=== PATIENT | male | born 1960 | race Caucasian/White ===

== ENCOUNTER 2020-11-27 12:06 | Outpatient (REF) | payer OTHER, SELFPAY | END 2020-11-27 12:07 | disposition home or self-care (01) | LOC: HO.BBR 12:06 | PROVIDERS: PCP Internal Medicine; Visit Provider Internal Medicine Hematology & Oncology | DX: D75.1 Secondary polycythemia (principal) | CPT/HCPCS: 85014; 85018; 99195 ==

== ENCOUNTER 2021-01-08 10:59 | Outpatient (REF) | payer OTHER, SELFPAY | END 2021-01-08 11:00 | disposition home or self-care (01) | LOC: HO.BBR 10:59 | PROVIDERS: Visit Provider Internal Medicine Hematology & Oncology | DX: D45 Polycythemia vera (principal) | CPT/HCPCS: 85014; 85018; 99195 ==

== ENCOUNTER 2021-01-22 10:43 | Outpatient (REF) | payer OTHER, SELFPAY | END 2021-01-22 10:44 | disposition home or self-care (01) | LOC: HO.BBR 10:43 | PROVIDERS: Visit Provider Internal Medicine Hematology & Oncology | DX: D45 Polycythemia vera (principal) | CPT/HCPCS: 85018; 99195 ==

== ENCOUNTER 2021-02-05 10:10 | Outpatient (REF) | payer OTHER, SELFPAY | END 2021-02-05 10:11 | disposition home or self-care (01) | LOC: HO.BBR 10:10 | PROVIDERS: Visit Provider Internal Medicine Hematology & Oncology | DX: D45 Polycythemia vera (principal) | CPT/HCPCS: 85018; 99195 ==

== ENCOUNTER 2021-02-20 13:11 | Outpatient (REF) | payer OTHER, SELFPAY | END 2021-02-20 13:12 | disposition home or self-care (01) | LOC: HO.BBR 13:11 | PROVIDERS: PCP Internal Medicine; Visit Provider Internal Medicine Hematology & Oncology | DX: D45 Polycythemia vera (principal) | CPT/HCPCS: 85018; 99195 ==

== ENCOUNTER 2021-03-06 13:02 | Outpatient (REF) | payer OTHER, SELFPAY | END 2021-03-06 13:03 | disposition home or self-care (01) | LOC: HO.BBR 13:02 | PROVIDERS: Visit Provider Internal Medicine Hematology & Oncology | DX: D45 Polycythemia vera (principal) | CPT/HCPCS: 85018; 99195 ==

== ENCOUNTER 2021-07-08 12:36 | Outpatient (REF) | payer OTHER, SELFPAY | END 2021-07-08 12:37 | disposition home or self-care (01) | LOC: HO.BBR 12:36 | PROVIDERS: Visit Provider Internal Medicine Hematology & Oncology | DX: D75.1 Secondary polycythemia (principal) | CPT/HCPCS: 85018; 99195 ==

== ENCOUNTER 2022-02-18 08:02 | Outpatient (REF) | payer OTHER, SELFPAY | END 2022-02-18 08:03 | disposition home or self-care (01) | LOC: HO.BBR 08:02 | PROVIDERS: Visit Provider Internal Medicine Hematology & Oncology | DX: D45 Polycythemia vera (principal) | CPT/HCPCS: 85018; 99195 ==

== ENCOUNTER 2022-03-28 10:07 | Outpatient (REF) | payer OTHER, SELFPAY | END 2022-03-28 10:08 | disposition home or self-care (01) | LOC: HO.BBR 10:07 | PROVIDERS: Visit Provider Internal Medicine Hematology & Oncology | DX: D45 Polycythemia vera (principal) | CPT/HCPCS: 85018; 99195 ==

== ENCOUNTER 2022-04-25 11:51 | Outpatient (REF) | payer OTHER, SELFPAY | END 2022-04-25 11:52 | disposition home or self-care (01) | LOC: HO.BBR 11:51 | PROVIDERS: Visit Provider Internal Medicine Hematology & Oncology | DX: D45 Polycythemia vera (principal) | CPT/HCPCS: 85018; 99195 ==

== ENCOUNTER 2022-05-23 10:59 | Outpatient (REF) | payer OTHER, SELFPAY | END 2022-05-23 11:00 | disposition home or self-care (01) | LOC: HO.BBR 10:59 | PROVIDERS: Visit Provider Internal Medicine Hematology & Oncology | DX: D45 Polycythemia vera (principal) | CPT/HCPCS: 85018 ==

== ENCOUNTER 2022-06-20 14:07 | Outpatient (REF) | payer OTHER, SELFPAY | END 2022-06-20 14:08 | disposition home or self-care (01) | LOC: HO.BBR 14:07 | PROVIDERS: PCP Internal Medicine; Visit Provider Internal Medicine Hematology & Oncology | DX: D45 Polycythemia vera (principal) | CPT/HCPCS: 85014; 85018; 99195 ==

== ENCOUNTER 2022-07-21 14:01 | Outpatient (REF) | payer OTHER, SELFPAY | END 2022-07-21 14:02 | disposition home or self-care (01) | LOC: HO.BBR 14:01 | PROVIDERS: Visit Provider Internal Medicine Hematology & Oncology | DX: D45 Polycythemia vera (principal) | CPT/HCPCS: 85014; 85018; 99195 ==

== ENCOUNTER 2022-08-22 13:48 | Outpatient (REF) | payer OTHER, SELFPAY | END 2022-08-22 13:49 | disposition home or self-care (01) | LOC: HO.BBR 13:48 | PROVIDERS: Visit Provider Internal Medicine Hematology & Oncology | DX: D45 Polycythemia vera (principal) | CPT/HCPCS: 85018; 99195 ==

== ENCOUNTER 2022-09-24 13:38 | Outpatient (REF) | payer OTHER, SELFPAY | END 2022-09-24 13:39 | disposition home or self-care (01) | LOC: HO.BBR 13:38 | PROVIDERS: Visit Provider Internal Medicine Hematology & Oncology | DX: D45 Polycythemia vera (principal) | CPT/HCPCS: 85018 ==

== ENCOUNTER 2022-10-22 12:49 | Outpatient (REF) | payer OTHER, SELFPAY | END 2022-10-22 12:50 | disposition home or self-care (01) | LOC: HO.BBR 12:49 | PROVIDERS: Visit Provider Internal Medicine Hematology & Oncology | DX: D45 Polycythemia vera (principal) | CPT/HCPCS: 85018 ==

== ENCOUNTER 2022-11-20 12:59 | Outpatient (REF) | payer OTHER, SELFPAY | END 2022-11-20 13:00 | disposition home or self-care (01) | LOC: HO.BBR 12:59 | PROVIDERS: Visit Provider Internal Medicine Hematology & Oncology | DX: Z13.89 Encounter for screening for other disorder (principal) ==

== ENCOUNTER 2023-01-01 12:44 | Outpatient (REF) | payer OTHER, SELFPAY | END 2023-01-01 12:45 | disposition home or self-care (01) | LOC: HO.BBR 12:44 | PROVIDERS: Visit Provider Internal Medicine Hematology & Oncology | DX: D45 Polycythemia vera (principal) | CPT/HCPCS: 85014; 85018; 99195 ==

== ENCOUNTER 2023-02-12 13:28 | Outpatient (REF) | payer OTHER, SELFPAY | END 2023-02-12 13:29 | disposition home or self-care (01) | LOC: HO.BBR 13:28 | PROVIDERS: Visit Provider Internal Medicine Hematology & Oncology | DX: D45 Polycythemia vera (principal) | CPT/HCPCS: 85014; 85018; 99195 ==

== ENCOUNTER 2023-03-26 12:47 | Outpatient (REF) | payer OTHER, SELFPAY | END 2023-03-26 12:48 | disposition home or self-care (01) | LOC: HO.BBR 12:47 | PROVIDERS: Visit Provider Internal Medicine Hematology & Oncology | DX: D45 Polycythemia vera (principal) | CPT/HCPCS: 85018 ==

== ENCOUNTER 2023-05-07 13:05 | Outpatient (REF) | payer OTHER, SELFPAY | END 2023-05-07 13:06 | disposition home or self-care (01) | LOC: HO.BBR 13:05 | PROVIDERS: Visit Provider Internal Medicine Hematology & Oncology | DX: D45 Polycythemia vera (principal) | CPT/HCPCS: 85014; 85018; 99195 ==

== ENCOUNTER 2023-06-09 13:49 | Outpatient (REF) | payer OTHER, SELFPAY | END 2023-06-09 13:50 | disposition home or self-care (01) | LOC: HO.BBR 13:49 | PROVIDERS: Visit Provider Internal Medicine Hematology & Oncology | DX: D45 Polycythemia vera (principal) | CPT/HCPCS: 85018; 99195 ==

== ENCOUNTER 2023-07-21 13:54 | Outpatient (REF) | payer OTHER, SELFPAY | END 2023-07-21 13:55 | disposition home or self-care (01) | LOC: HO.BBR 13:54 | PROVIDERS: Visit Provider Internal Medicine Hematology & Oncology | DX: D45 Polycythemia vera (principal) | CPT/HCPCS: 85014; 85018; 99195 ==

== ENCOUNTER 2023-09-01 13:53 | Outpatient (REF) | payer OTHER, SELFPAY | END 2023-09-01 13:54 | disposition home or self-care (01) | LOC: HO.BBR 13:53 | PROVIDERS: Visit Provider Internal Medicine Hematology & Oncology | DX: D45 Polycythemia vera (principal) | CPT/HCPCS: 85018 ==

== ENCOUNTER 2023-10-13 12:58 | Outpatient (REF) | payer OTHER, SELFPAY | END 2023-10-13 12:59 | disposition home or self-care (01) | LOC: HO.BBR 12:58 | PROVIDERS: Visit Provider Internal Medicine Hematology & Oncology | DX: D45 Polycythemia vera (principal) | CPT/HCPCS: 85014; 85018; 99195 ==

== ENCOUNTER 2023-12-08 13:55 | Outpatient (REF) | payer OTHER, SELFPAY | END 2023-12-08 13:56 | disposition home or self-care (01) | LOC: HO.BBR 13:55 | PROVIDERS: Visit Provider Internal Medicine Hematology & Oncology | DX: D45 Polycythemia vera (principal) | CPT/HCPCS: 85018; 99195 ==

== ENCOUNTER 2024-02-02 13:45 | Outpatient (REF) | payer OTHER, SELFPAY | END 2024-02-02 13:46 | disposition home or self-care (01) | LOC: HO.BBR 13:45 | PROVIDERS: Visit Provider Internal Medicine Hematology & Oncology | DX: D45 Polycythemia vera (principal) | CPT/HCPCS: 85018; 99195 ==

== ENCOUNTER 2024-03-29 13:33 | Outpatient (REF) | payer OTHER, SELFPAY | END 2024-03-29 13:34 | disposition home or self-care (01) | LOC: HO.BBR 13:33 | PROVIDERS: Visit Provider Internal Medicine Hematology & Oncology | DX: D45 Polycythemia vera (principal) | CPT/HCPCS: 85018; 99195 ==

== ENCOUNTER 2024-05-24 12:59 | Outpatient (REF) | payer OTHER, SELFPAY | END 2024-05-24 13:00 | disposition home or self-care (01) | LOC: HO.BBR 12:59 | PROVIDERS: Visit Provider Internal Medicine Hematology & Oncology | DX: D45 Polycythemia vera (principal) | CPT/HCPCS: 85014; 85018; 99195 ==

== ENCOUNTER 2024-07-18 13:41 | Outpatient (REF) | payer OTHER, SELFPAY ==
--- OUTSIDE RECORDS SUMMARY | 2024-07-18 15:27 | XMS_ITS | Encounter Summary ---
Author Organization [employer] Address [address] [facility] [address] [place] [address] Care Team Providers Care Seed Yeast Operator Name Role Phone Mumtaz Charles Unassigned Primary Care Provider U navailable Encounter Details Date Type Department Care Team (Latest Contact Info) Description 10/08/2018 Abstract [facility] Dental, Provider, DDS Social History Tobacco Use Types Packs/Day Years Used Date Smoking Tobacco: Never Assessed Sex and Gender Information Value Date Recorded Sex Assigned at Male 06/13/2022 3:03 PM EST Legal Sex Male 8:39 PM EDT Gender Identity Male 06/13/2022 3:03 PM EST Sexual Orientation Choose not to disclose 2022 3:03 PM EST documented as of this encounter Plan of Treatment Not on file documented as of this encounter Visit Diagnoses Not on filedocumented in this encounter Care Teams Seed Yeast Operator Relationship Specialty Start Date End Date Mumtaz Charles Unassigned PCP - General Family Medicine 09/08/22 documented as of this encounter
--- OUTSIDE RECORDS SUMMARY | 2024-07-18 15:27 | XMS_ITS | Clinical Summary ---
Author Organization [facility] Address [address] [place] [address] Phone Care Team Providers Care Vending Machine Assembler Name Role Phone Ibrahima Martin MD Primary Care Provider [phone] Allergies No known active allergies Medications apixaban (Eliquis) 5 mg tablet Take 1 tablet (5 mg total) by mouth every 12 hours. 02/16/2023 Active atorvastatin (LIPITOR) 20 mg tablet Take 1 tablet (20 mg total) by mouth every other day. Active metoprolol succinate (TOPROL-XL) 25 mg 24 hr tablet Take 1 tablet (25 mg total) by mouth 1 (one) time each day. Active hydroxyurea (HYDREA) 500 mg capsule TAKE 1 CAPSULE (500 MG TOTAL) BY MOUTH DAILY 30 capsule 11 03/17/2024 Active Active Problems Problem Noted Date Diagnosed Date Hereditary hemochromatosis 11/29/2019 Homozygous Factor V Leiden mutation 11/29/2019 Surgical History Surgery Date Site/Laterality Comments APPENDECTOMY PROCEDURE:APPENDECTOMY OTHER SURGICAL HISTORY PROCEDURE:Heart Stent placed 02/25/2006 Medical History Medical History Date Comments Hemochromatosis DX:Hemochromatos is Gout DX:Gout Social History Tobacco Use Types Packs/Day Years Used Date Smoking Tobacco: Former Cigarettes Q uit: 10/09/2017 Tobacco Cessation:Counseling Given: Not Answered Alcohol Use Standard Drinks/Week Comments Yes 2 (1 standard drink = 0.6 oz pur e alcohol) Sex and Gender Information Value Date Recorded Sex Assigned at Not on file Legal Sex Male 7:36 PM EST Gender Identity Not on file Sexual Orientation Not on file Obstetrics History Last Filed Vital Signs Vital Sign Reading Time Taken Comments Blood Pressure 136/80 03/18/2024 2:30 PM EST Pulse 75 03/18/2024 2:30 PM EST Temperature 36.3 ??C (97.4 ??F) 03/18/2024 2:30 PM ES T Respiratory Rate - - Oxygen Saturation 100% 03/18/2024 2:30 PM EST Inhaled Oxygen Concentration - - Weight 104 kg (230 lb) 03/18/2024 2:30 PM EST Height 188 cm (6' 2 ) 03/18/2024 2:30 PM EST Body Mass Index 29.53 03/18/2024 2:30 PM EST Plan of Treatment Upcoming Encounters Date Type Department Care Team (Late st Contact Info) Description 07/19/2024 2:30 PM EDT Office Visit [facility] Hematology Oncology [address] [place] [address] Rich Caldwell MD [address] [place] [address] Health Maintenance Due Date Last Done Comments Pneumococcal Vaccine: 50+ Years (1 of 1 - PCV) 2010 Zoster Vaccines (1 of 2) 2010 Cholesterol Screening (Lipid Panel) 04/18/2022 Colorectal Cancer Screening: Colonoscopy 04/18/2022 Depression Screening 04/18/2022 HIV Screening 04/18/2022 Hepatitis C Screening 04/18/2022 Social Influencers of Health Screening 04/18/2022 COVID-19 Vaccine ( season) 2024 03/05/2022, 09/01/2021, 02/11/2021, Additional history exists Influenza Vaccine (#1) 2024 DTaP,Tdap,and Td Vaccines (2 - Td or Tdap) 02/23/2031 02/23/2021 RSV Immunization Patients 60+ Years Old (1 - 1-dose 75+ series) 10/27/2035 HIB Vaccines Aged Out No longer eligi ble based on patient's age to complete this topic HPV Vaccines Aged Out No longer eligi ble based on patient's age to complete this topic Hepatitis A Vaccines Aged Out No long er eligible based on patient's age to complete this topic Hepatitis B Vaccines Aged Out No long er eligible based on patient's age to complete this topic IPV Vaccines Aged Out No longer eligi ble based on patient's age to complete this topic MMR Vaccines Aged Out No longer eligi ble based on patient's age to complete this topic Meningococcal ACWY Vaccine Aged Out N o longer eligible based on patient's age to complete this topic Meningococcal B Vacine Aged Out No lo nger eligible based on patient's age to complete this topic Pneumococcal Vaccine: Pediatrics (0 to 5 Years) and At-Risk Patients (6 to 64 Years) Aged Out No longer eligible based on patient's age to complete this topic RSV Immunization Patients Under 20 months Aged Out No longer eligible based on patient's age to complete this topic Varicella Vaccines Aged Out No longer eligible based on patient's age to complete this topic Procedures Procedure Name Priority Date/Time Associated Diagnosis Comments CBC WITH AUTO DIFFERENTIAL Routine 05/17/2024 8:18 AM EST Hereditary hemochromatosis (CMS/HCC) COMPREHENSIVE METABOLIC PANEL Routine 05/17/2024 8:18 AM EST Hereditary hemochromatosis (CMS/HCC) IRON AND TIBC Routine 05/17/2024 8:18 AM EST Hereditary hemochromatosis (CMS/HCC) FERRITIN Routine 05/17/2024 8:18 AM EST Hereditary hemochromatosis (CMS/HCC) CBC AND DIFFERENTIAL Routine 05/17/2024 8:18 AM EST Hereditary hemochromatosis (CMS/HCC) from Last 3 Months Results * (ABNORMAL) CBC auto differential (05/17/2024 8:18 AM EST) WBC 8.0 4.8 - 10.8 K/mcL LAB HEMETOLOGY METHOD 05/17/2024 11:52 AM EST [facility] RBC 5.60(H) 4.50 - 5.50 M/mcL LAB HEMETOLOGY METHOD 05/17/2024 11:52 AM EST [facility] Hemoglobin 14.4 13.5 - 17.5 g/dL LAB HEMETOLOGY METHOD 05/17/2024 11:52 AM [facility] Hematocrit 47.3 42.0 - 54.0 % LAB HEMETOLOGY METHOD 05/17/2024 11:52 AM [facility] MCV 85.2 79.0 - 98.0 FL LAB HEMETOLOGY METHOD 05/17/2024 11:52 AM [facility] MCH 25.9(L) 27.0 - 32.0 pcg LAB HEMETOLOGY METHOD 05/17/2024 11:52 AM [facility] MCHC 30.4(L) 32.0 - 37.0 g/dL LAB HEMETOLOGY METHOD 05/17/2024 11:52 AM [facility] RDW 16.0(H) 11.0 - 15.0 % LAB HEMETOLOGY METHOD 05/17/2024 11:52 AM [facility] Platelets 271 130 - 400 K/mcL LAB HEMETOLOGY METHOD 05/17/2024 11:52 AM [facility] MPV 9.6 7.0 - 11.0 FL LAB HEMETOLOGY METHOD 05/17/2024 11:52 AM [facility] NRBC 0.0 <1.0 % LAB HEMETOLOGY METHOD 05/17/2024 11:52 AM [facility] NRBC Absolute 0.00 <0.10 K/mcL LAB HEMETOLOGY METHOD 05/17/2024 11:52 AM [facility] Neutrophils Relative 67.3 % LAB HEMETOLOGY METHOD 05/17/2024 11:52 AM [facility] Lymphocytes Relative 16.3 % LAB HEMETOLOGY METHOD 05/17/2024 11:52 AM [facility] Monocytes Relative 10.5 % LAB HEMETOLOGY METHOD 05/17/2024 11:52 AM [facility] Eosinophils Relative 3.7 % LAB HEMETOLOGY METHOD 05/17/2024 11:52 AM EST [facility] Basophils Relative 1.7 % LAB HEMETOLOGY METHOD 05/17/2024 11:52 AM [facility] Immature Granulocytes Relative 0.5 % LAB HEMETOLOGY METHOD 05/17/2024 11:52 AM [facility] Neutrophils Absolute 5.39 1.50 - 7.00 K/mcL LAB HEMETOLOGY METHOD 05/17/2024 11:52 AM [facility] Lymphocytes Absolute 1.31 1.00 - 5.00 K/mcL LAB HEMETOLOGY METHOD 05/17/2024 11:52 AM [facility] Monocytes Absolute 0.84 0.20 - 1.00 K/mcL LAB HEMETOLOGY METHOD 05/17/2024 11:52 AM [facility] Eosinophils Absolute 0.30 0.00 - 0.50 K/mcL LAB HEMETOLOGY METHOD 05/17/2024 11:52 AM [facility] Basophils Absolute 0.14 0.00 - 0.20 K/mcL LAB HEMETOLOGY METHOD 05/17/2024 11:52 AM [facility] Immature Granulocytes Absolute 0.04(H) 0.00 - 0.03 K/mcL LAB HEMETOLOGY METHOD 05/17/2024 11:52 AM [facility] Blood Venous blood specimen / Unknown Venipuncture / Unknown 05/17/2024 8:18 AM EST 05/17/2024 11:31 AM EST us Rich Caldwell MD LAB BLOOD ORDERABLES Final Result [facility] [address] [place] [address], * (ABNORMAL) Iron and TIBC (05/17/2024 8:18 AM EST) Iron 36(L) 50 - 160 mcg/dL LAB CHEMISTRY METHOD 05/17/2024 12:22 PM [facility] TIBC 296 250 - 450 mcg/dL LAB CHEMISTRY METHOD 05/17/2024 12:22 PM [facility] Iron Saturation 12(L) 20 - 50 % LAB CHEMISTRY METHOD 05/17/2024 12:22 PM [facility] Blood Venous blood specimen / Unknown Venipuncture / Unknown 05/17/2024 8:18 AM EST 05/17/2024 11:32 AM EST us Rich Caldwell MD LAB BLOOD ORDERABLES Final Result Performing Organization Address City/[facility]/ZIP Co de Phone Number [facility] [address] [place] [address], [place] [phone] * (ABNORMAL) Ferritin (05/17/2024 8:18 AM EST) Ferritin 8(L) 26 - 388 ng/mL LAB CHEMISTRY METHOD 05/17/2024 12:24 PM [facility] Blood Venous blood specimen / Unknown Venipuncture / Unknown 05/17/2024 8:18 AM EST 05/17/2024 11:32 AM EST us Rich Caldwell MD LAB BLOOD ORDERABLES Final Result Performing Organization Address City/[facility]/ZIP Co de Phone Number [facility] [address] [place] [address], [place] [phone] * (ABNORMAL) Comprehensive metabolic panel (05/17/2024 8:18 AM EST) Sodium 139 133 - 145 mmol/L LAB CHEMISTRY METHOD 05/17/2024 12:23 PM [facility] Potassium 4.1 3.5 - 5.5 mmol/L LAB CHEMISTRY METHOD 05/17/2024 12:23 PM [facility] Chloride 104 96 - 110 mmol/L LAB CHEMISTRY METHOD 05/17/2024 12:23 PM [facility] CO2 26 21 - 32 mmol/L LAB CHEMISTRY METHOD 05/17/2024 12:23 PM [facility] Anion Gap 9 3 - 11 LAB CHEMISTRY METHOD 05/17/2024 12:23 PM [facility] Glucose 103(H) 70 - 100 mg/dL LAB CHEMISTRY METHOD 05/17/2024 12:23 PM [facility] BUN 12 5 - 25 mg/dL LAB CHEMISTRY METHOD 05/17/2024 12:23 PM [facility] Creatinine 1.05 0.70 - 1.30 mg/dL LAB CHEMISTRY METHOD 05/17/2024 12:23 PM [facility] eGFR 80 >=60 mL/min/1. 73m2 LAB CHEMISTRY METHOD 05/17/2024 12:23 PM [facility] Comment:Calculation based on the??Chronic Kidney Disease Epidemiology Collaboration (CKD-EPI) equation refit??without adjustment for race. BUN/Creatinine Ratio 11.4 LAB CHEMISTRY METHOD 05/17/2024 12:23 PM [facility] Calcium 9.3 8.5 - 10.5 mg/dL LAB CHEMISTRY METHOD 05/17/2024 12:23 PM [facility] AST (SGOT) 19 10 - 42 unit/L LAB CHEMISTRY METHOD 05/17/2024 12:23 PM [facility] ALT (SGPT) 38 10 - 60 unit/L LAB CHEMISTRY METHOD 05/17/2024 12:23 PM [facility] Alkaline Phosphatase 78 42 - 121 unit/L LAB CHEMISTRY METHOD 05/17/2024 12:23 PM [facility] Total Protein 7.1 6.0 - 8.0 g/dL LAB CHEMISTRY METHOD 05/17/2024 12:23 PM [facility] Albumin 3.9 3.2 - 5.0 g/dL LAB CHEMISTRY METHOD 05/17/2024 12:23 PM EST [facility] Total Bilirubin 0.7 0.0 - 1.4 mg/dL LAB CHEMISTRY METHOD 05/17/2024 12:23 PM EST [facility] Blood Venous blood specimen / Unknown Venipuncture / Unknown 05/17/2024 8:18 AM EST 05/17/2024 11:32 AM EST us Rich Caldwell MD LAB BLOOD ORDERABLES Final Result [facility] [address] [place] [address], from Last 3 Months Insurance [facility] [employer] Care Teams Vending Machine Assembler Relationship Specialty Start Date End Date Ibrahima Martin MD [address] [place] [address] [address] [place], [place] PCP - General Geriatric Medicine 01/02/21
--- OUTSIDE RECORDS SUMMARY | 2024-07-18 15:27 | XMS_ITS | Clinical Summary ---
Author Organization [facility] Address [address] [place] [address] Care Team Providers Care Hash Slinger Name Role Phone Ibrahima Martin MD Primary Care Provider [phone] Allergies No known active allergies Medications Medication Sig Dispensed Refills Start Date End Date Status atorvastatin (LIPITOR) tablet 20 mg Take 1 tablet (20 mg total) by mouth every other day. 0 Active metoprolol succinate (TOPROL-XL) 24 hr tablet 25 mg Take 1 tablet (25 mg total) by mouth daily. 0 Active aspirin EC 81 MG tablet Take 1 tablet (81 mg total) by mouth daily. 0 Active hydroxyurea (HYDREA) 500 MG capsule TAKE 1 CAPSULE (500 MG TOTAL) BY MOUTH DAILY 30 capsule 11 03/30/2023 Active apixaban (Eliquis) 5 MG TABS tablet Take 1 tablet (5 mg total) by mouth every 12 (twelve) hours. 60 tablet 11 02/16/2024 Active Active Problems Problem Noted Date Diagnosed Date Hereditary hemochromatosis 11/29/2019 Homozygous Factor V Leiden mutation 11/29/2019 Immunizations Name Administration Dates Next Due Covid-19 (Pfizer) Dilution Required 02/11/2021,0 08/13/2020,07/23/2020 Social History Tobacco Use Types Packs/Day Years Used Date Smoking Tobacco: Former Cigarettes Q uit: 10/2017 Alcohol Use Standard Drinks/Week Comments Yes 2 (1 standard drink = 0.6 oz pur e alcohol) Sex and Gender Information Value Date Recorded Sex Assigned at Not on file Gender Identity Not on file Sexual Orientation Not on file Job Start Date Occupation Industry Not on file Not on file Not on file Last Filed Vital Signs Vital Sign Reading Time Taken Comments Blood Pressure 129/75 12/11/2023 2:32 PM EDT Pulse 77 12/11/2023 2:32 PM EDT Temperature 36.4 ??C (97.6 ??F) 12/11/2023 2:32 PM ED T Respiratory Rate - - Oxygen Saturation 99% 12/11/2023 2:32 PM EDT Inhaled Oxygen Concentration - - Weight 103.4 kg (228 lb) 12/11/2023 2:32 PM EDT Height 188 cm (6' 2 ) 12/11/2023 2:32 PM EDT Body Mass Index 29.27 12/11/2023 2:32 PM EDT Plan of Treatment Health Maintenance Due Date Last Done Comments Hepatitis C Screening 1960 Depression Screening 1972 BMI Counseling 1978 Preventative Health Evaluation 1978 Colon Cancer Screening (Colonoscopy) 2005 Shingrix-Zoster Vaccine (1 o f 2) 2010 COVID-19 Vaccine (2023-2 5 season) 2024 02/11/2021, 08/13/2020, 07/23/2020 Influenza Vaccine (#1) 2024 DTap / Tdap / Td (2 - Td or Tdap) 02/23/2031 02/23/2021 RSV Adult > 60+ Yrs or (1 - 1-dose 75+ series) 10/27/2035 Hepatitis B Vaccines Aged Out No long er eligible based on patient's age to complete this topic Pneumococcal Vaccine Aged Out No long er eligible based on patient's age to complete this topic RSV Ped < 20 months Aged Out No longe r eligible based on patient's age to complete this topic Care Teams Hash Slinger Relationship Specialty Start Date End Date Ibrahima Martin MD [address] [place] [address] [address] [place] [address] PCP - General Geriatric Medicine 01/02/21
--- OUTSIDE RECORDS SUMMARY | 2024-07-18 15:28 | XMS_ITS | Clinical Summary ---
Author Organization [employer] Address [address] [facility] [address] [place] [address] Care Team Providers Care Reproductive Surgeon Name Role Phone PcpMumtaz Unassigned Primary Care Provider U navailable Allergies No known active allergies Medications aspirin 81 MG EC tablet 1 tablet in the morning. Active metoprolol-hydro CHLOROthiazide ER (Dutoprol) 25-12.5 MG tablet 1 tablet in the morning. Active Eliquis 5 MG tablet Take 5 mg by mouth every 12 (twelve) hours. 07/18/2022 Active atorvastatin (Lipitor) 20 MG tablet TAKE 1 TABLET BY MOUTH EVERY DAY FOR 90 DAYS 06/04/2022 Active hydroxyurea (Hydrea) 500 MG capsule 08/09/2022 Active metoprolol succinate XL (Toprol-XL) 25 MG 24 hr tablet Take 25 mg by mouth in the morning. Active atorvastatin (Lipitor) 20 MG tablet Take 20 mg by mouth every other day. Active aspirin 81 MG EC tablet Take 81 mg by mouth in the morning. Active Immunizations Name Administration Dates Next Due Tdap 02/23/2021 Social History Tobacco Use Types Packs/Day Years Used Date Smoking Tobacco: Never Smokeless Tobacco: Never Tobacco Cessation:Counseling Given: Not Answered Alcohol Use Standard Drinks/Week Comments Never 0 (1 standard drink = 0.6 oz pur e alcohol) Sex and Gender Information Value Date Recorded Sex Assigned at Male 06/13/2022 3:03 PM EST Legal Sex Male 8:39 PM EDT Gender Identity Male 06/13/2022 3:03 PM EST Sexual Orientation Choose not to disclose 2022 3:03 PM EST Last Filed Vital Signs Vital Sign Reading Time Taken Comments Blood Pressure 139/80 11/08/2020 9:00 AM EDT Pulse - - Temperature - - Respiratory Rate - - Oxygen Saturation - - Inhaled Oxygen Concentration - - Weight - - Height - - Body Mass Index - - Plan of Treatment Health Maintenance Due Date Last Done Comments CT Colonography 1960 Colonoscopy 1960 Colorectal Cancer Screening 1960 Depression Screening 1960 FIT DNA/Cologuard 1960 FIT 1960 FOBT 1960 HIV Screening 1960 Lipid Panel 1960 SDOH Screening 1960 Sigmoidoscopy 1960 Alcohol/Substance Use Screening 1972 Hepatitis C Screening 1978 Pneumococcal Vaccine: 50+ Years (1 of 1 - PCV) 2010 Zoster Vaccines (1 of 2) 2010 Dental X-Ray: Full Mouth 08/10/2018 08/10/2015, 02/08 Dental Oral Exam 12/22/2022 06/23/2022, , 03/05/2018, Additional history exists Dental Prophylaxis 12/22/2022 06/23/2022, 0 10/08/2018, 03/05/2018, Additional history exists Tobacco Screening 06/23/2023 06/23/2022 Dental X-Ray: Bitewings 06/24/2023 06/23/19 23, 08/10/2015, 05/23/2010, Additional history exists COVID-19 Vaccine ( season) 2024 03/05/2022, 09/01/2021, 02/11/2021, Additional history exists Influenza Vaccine (#1) 2024 DTaP/Tdap/Td Vaccines (2 - Td or Tdap) 02/23/2031 02/23/2021 RSV Patients and Patients Aged 60 years or older (1 - 1-dose 75+ series) 10/27/2035 HIB [...] patient's age to complete this topic Meningococcal Vaccine Aged Out No luis manuel olga lidia eligible based on patient's age to complete this topic RSV under 20 months Aged Out No longe r eligible based on patient's age to complete this topic Rotavirus Vaccines Aged Out No longer eligible based on patient's age to complete this topic Procedures Procedure Name Priority Date/Time Associated Diagnosis Comments Full PROPHYLAXIS - ADULT Routine 023 2:00 PM EST BITEWINGS - 2 RADIOGRAPHIC IMAGES Routine 06/23/2022 2:00 PM EST PERIODIC ORAL EVALUATION - ESTABLISHED PATIENT Routine 06/23/2022 2:00 PM EST INTRAORAL - COMPLETE SERIES OF RADIOGRAPHIC IMAGES Routine 08/10/2015 12:00 AM EDT from Last 3 Months or Most Recently Relevant to Health Maintenance Insurance DENTAL - HSN FULL (MEDICAID) Care Teams Reproductive Surgeon Relationship Specialty Start Date End Date Mumtaz Charles Unassigned PCP - General Family Medicine 09/08/22
== END 2024-07-18 13:42 | disposition home or self-care (01) ==
LOC: HO.BBR 13:41
PROVIDERS: Visit Provider Internal Medicine Hematology & Oncology
DX: D45 Polycythemia vera (principal)
CPT/HCPCS: 85018; 99195

== ENCOUNTER 2024-09-12 12:32 | Outpatient (REF) | payer OTHER, SELFPAY ==
--- OUTSIDE RECORDS SUMMARY | 2024-09-12 14:04 | XMS_ITS | Clinical Summary ---
Author Organization [employer] Address [address] [facility] 7[address] [place] [address] Care Team Providers Care Prep Person Name Role Phone PcpMumtaz Unassigned Primary Care [...] DENTAL - HSN FULL (MEDICAID) Care Teams Prep Person Relationship Specialty Start Date End Date Mumtaz Charles Unassigned PCP - General Family Medicine 09/08/22
--- OUTSIDE RECORDS SUMMARY | 2024-09-12 14:04 | XMS_ITS | Clinical Summary ---
Author Organization [facility] Address [address] [place] [address] Phone Care Team Providers Care Developing Machine Tender Name Role Phone Ibrahima Martin MD Primary Care Provider [phone] Allergies No known active allergies Medications apixaban [...] Problem Noted Date Diagnosed Date Hereditary hemochromatosis (CMS/HCC V24) 020 Homozygous Factor V Leiden mutation (CMS/HCC V24 ) 11/29/2019 Encounters Date Type Department Care Team Description 09/05/2024 Telephone [facility] Hematology Oncology [address] [place] [phone] Rich Caldwell MD 07/19/2024 2:30 PM EDT Office Visit [facility] Hematology Oncology [address] [place] [phone] Rich Caldwell MD Homozygous Factor V Leiden mutation (CMS/HCC V24) (Primary Dx); Hereditary hemochromatosis (CMS/HCC V24) from Last 3 Months Surgical History Surgery Date Site/Laterality Comments APPENDECTOMY [...] Sign Reading Time Taken Comments Blood Pressure 135/71 07/19/2024 2:29 PM EDT Pulse 88 07/19/2024 2:29 PM EDT Temperature 36.5 ??C (97.7 ??F) 07/19/2024 2:29 PM ED T Respiratory Rate - - Oxygen Saturation 100% 07/19/2024 2:29 PM EDT Inhaled Oxygen Concentration - - Weight 106 kg (234 lb) 07/19/2024 2:29 PM EDT Height 188 cm (6' 2 ) 03/18/2024 2:30 PM EST Body Mass Index 30.04 03/18/2024 2:30 PM EST Plan of Treatment Upcoming Encounters Date Type Department Care Team (Late st Contact Info) Description 10/18/2024 1:30 PM EDT Office Visit [facility] Hematology Oncology [address] [place] [address] Rich Caldwell MD [address] [place] [address] Health Maintenance Due Date Last [...] 09/01/2021, 02/11/2021, Additional history exists Influenza Vaccine (Season Ended) 2025 DTaP,Tdap,and Td Vaccines (2 - Td or Tdap) 02/23/2031 02/23/2021 RSV Immunization Adult Patients (1 - 1-dose 75+ series) 10/27/2035 HIB [...] age to complete this topic Meningococcal B Vaccine Aged Out No l onger eligible based on patient's age to complete [...] Diagnosis Comments CBC WITH AUTO DIFFERENTIAL Routine 08/16/2024 12:16 PM EDT Hemochromatosis CBC AND DIFFERENTIAL Routine 08/16/2024 12:16 PM EDT Hemochromatosis FERRITIN Routine 08/16/2024 12:16 PM EDT Hemochromatosis IRON AND TIBC Routine 08/16/2024 12:16 PM EDT Hemochromatosis COMPREHENSIVE METABOLIC PANEL Routine 08/16/2024 12:16 PM EDT Hemochromatosis from Last 3 Months Results * (ABNORMAL) CBC auto differential (08/16/2024 12:16 PM EDT) [facility] Signature WBC 7.6 4.8 - 10.8 K/mcL LAB HEMETOLOGY METHOD 08/16/2024 1:53 PM [facility] RBC 5.30 4.50 - 5.50 M/mcL LAB HEMETOLOGY METHOD 08/16/2024 1:53 PM [facility] Hemoglobin 13.2(L) 13.5 - 17.5 g/dL LAB HEMETOLOGY METHOD 08/16/2024 1:53 PM [facility] Hematocrit 44.3 42.0 - 54.0 % LAB HEMETOLOGY METHOD 08/16/2024 1:53 PM [facility] MCV 83.0 79.0 - 98.0 FL LAB HEMETOLOGY METHOD 08/16/2024 1:53 PM [facility] MCH 24.7(L) 27.0 - 32.0 pcg LAB HEMETOLOGY METHOD 08/16/2024 1:53 PM [facility] MCHC 29.8(L) 32.0 - 37.0 g/dL LAB HEMETOLOGY METHOD 08/16/2024 1:53 PM [facility] RDW 17.0(H) 11.0 - 15.0 % LAB HEMETOLOGY METHOD 08/16/2024 1:53 PM [facility] Platelets 292 130 - 400 K/mcL LAB HEMETOLOGY METHOD 08/16/2024 1:53 PM [facility] MPV 9.2 7.0 - 11.0 FL LAB HEMETOLOGY METHOD 08/16/2024 1:53 PM [facility] NRBC 0.0 <1.0 % LAB HEMETOLOGY METHOD 08/16/2024 1:53 PM [facility] NRBC Absolute 0.00 <0.10 K/mcL LAB HEMETOLOGY METHOD 08/16/2024 1:53 PM [facility] Neutrophils Relative 65.6 % LAB HEMETOLOGY METHOD 08/16/2024 1:53 PM EDT [facility] Lymphocytes Relative 18.0 % LAB HEMETOLOGY METHOD 08/16/2024 1:53 PM [facility] Monocytes Relative 11.0 % LAB HEMETOLOGY METHOD 08/16/2024 1:53 PM EDT [facility] Eosinophils Relative 3.6 % LAB HEMETOLOGY METHOD 08/16/2024 1:53 PM [facility] Basophils Relative 1.5 % LAB HEMETOLOGY METHOD 08/16/2024 1:53 PM [facility] Immature Granulocytes Relative 0.3 % LAB HEMETOLOGY METHOD 08/16/2024 1:53 PM [facility] Neutrophils Absolute 4.98 1.50 - 7.00 K/mcL LAB HEMETOLOGY METHOD 08/16/2024 1:53 PM [facility] Lymphocytes Absolute 1.36 1.00 - 5.00 K/mcL LAB HEMETOLOGY METHOD 08/16/2024 1:53 PM [facility] Monocytes Absolute 0.83 0.20 - 1.00 K/mcL LAB HEMETOLOGY METHOD 08/16/2024 1:53 PM [facility] Eosinophils Absolute 0.27 0.00 - 0.50 K/mcL LAB [facility]24 [facility] Basophils Absolute 0.11 0.00 - 0.20 K/mcL LAB HEMETOLOGY METHOD 08/16/2024 1:53 PM [facility] Immature Granulocytes Absolute 0.02 0.00 - 0.03 K/mcL LAB HEMETOLOGY METHOD 08/16/2024 1:53 PM [facility] Blood Venous blood specimen / Unknown Venipuncture / Unknown 08/16/2024 12:16 PM EDT 08/16/2024 1:34 PM EDT us Rich Caldwell MD LAB BLOOD ORDERABLES Final Result Performing Organization Address [facility] Co de Phone Number [facility] [address] [place] [address], [place] [phone] * (ABNORMAL) Iron and TIBC (08/16/2024 12:16 PM EDT) Iron 22(L) 50 - 160 mcg/dL LAB CHEMISTRY METHOD 08/16/2024 3:23 PM EDT [facility] TIBC 284 250 - 450 mcg/dL LAB CHEMISTRY METHOD 08/16/2024 3:23 PM EDT [facility] Iron Saturation 8(L) 20 - 50 % LAB CHEMISTRY METHOD 08/16/2024 3:23 PM EDT [facility] Blood Venous blood specimen / Unknown Venipuncture / Unknown 08/16/2024 12:16 PM EDT 08/16/2024 1:33 PM EDT us Rich Caldwell MD LAB BLOOD ORDERABLES Final Result Performing Organization Address [facility] de Phone Number [facility] [address] [place] [address], [place] [phone] * (ABNORMAL) Ferritin (08/16/2024 12:16 PM EDT) Ferritin 7(L) 26 - 388 ng/mL LAB CHEMISTRY METHOD 08/16/2024 3:25 PM EDT [facility] Blood Venous blood specimen / Unknown Venipuncture / Unknown 08/16/2024 12:16 PM EDT 08/16/2024 1:33 PM EDT us Rich Caldwell MD LAB BLOOD ORDERABLES Final Result Performing Organization Address City/[facility]/ZIP Co de Phone Number [facility] [address] [place] [address], * Comprehensive metabolic panel (08/16/2024 12:16 PM EDT) Sodium 139 133 - 145 mmol/L LAB CHEMISTRY METHOD 08/16/2024 3:23 PM EDT [facility] Potassium 4.4 3.5 - 5.5 mmol/L LAB CHEMISTRY METHOD 08/16/2024 3:23 PM T [facility] Chloride 106 96 - 110 mmol/L LAB CHEMISTRY METHOD 08/16/2024 3:23 PM [facility] CO2 27 21 - 32 mmol/L LAB CHEMISTRY METHOD 08/16/2024 3:23 PM [facility] Anion Gap 6 3 - 11 LAB CHEMISTRY METHOD 08/16/2024 3:23 PM [facility] Glucose 90 70 - 100 mg/dL LAB CHEMISTRY METHOD 08/16/2024 3:23 PM [facility] BUN 15 5 - 25 mg/dL LAB CHEMISTRY METHOD 08/16/2024 3:23 PM [facility] Creatinine 0.89 0.70 - 1.30 mg/dL LAB CHEMISTRY METHOD 08/16/2024 3:23 PM [facility] eGFR 96 >=60 mL/min/1. 73m2 LAB CHEMISTRY METHOD 08/16/2024 3:23 PM [facility] Comment:Calculation based on the??Chronic Kidney Disease Epidemiology Collaboration (CKD-EPI) equation refit??without adjustment for race. BUN/Creatinine Ratio 16.9 LAB CHEMISTRY METHOD 08/16/2024 3:23 PM [facility] Calcium 9.6 8.5 - 10.5 mg/dL LAB CHEMISTRY METHOD 08/16/2024 3:23 PM [facility] AST (SGOT) 19 10 - 42 unit/L LAB CHEMISTRY METHOD 08/16/2024 3:23 PM EDT [facility] ALT (SGPT) 32 10 - 60 unit/L LAB CHEMISTRY METHOD 08/16/2024 3:23 PM EDT [facility] Alkaline Phosphatase 77 42 - 121 unit/L LAB CHEMISTRY METHOD 08/16/2024 3:23 PM EDT [facility] Total Protein 7.2 6.0 - 8.0 g/dL LAB CHEMISTRY METHOD 08/16/2024 3:23 PM EDT [facility] Albumin 3.9 3.2 - 5.0 g/dL LAB CHEMISTRY METHOD 08/16/2024 3:23 PM EDT [facility] Total Bilirubin 0.7 0.0 - 1.4 mg/dL LAB CHEMISTRY METHOD 08/16/2024 3:23 PM EDT [facility] Blood Venous blood specimen / Unknown Venipuncture / Unknown 08/16/2024 12:16 PM EDT 08/16/2024 1:33 PM EDT us Rich Caldwell MD LAB BLOOD ORDERABLES Final Result [facility] [address] [place] [address], [place] [phone] from Last 3 Months Insurance [facility] [employer] Care Teams Developing Machine Tender Relationship Specialty Start Date End Date Ibrahima Martin MD [address] [facility] [address] [place], [place] PCP - General Geriatric Medicine 01/02/21
--- OUTSIDE RECORDS SUMMARY | 2024-09-12 14:04 | XMS_ITS | Encounter Summary ---
Author Organization [employer] Address [address] [facility] [address] [place] [address] Care Team Providers Care Head Irrigator Name Role Phone Mumtaz Charles Unassigned Primary [...] on filedocumented in this encounter Care Teams Head Irrigator Relationship Specialty Start Date End Date Mumtaz Charles Unassigned PCP - General Family Medicine 09/08/22 documented as of this encounter
--- OUTSIDE RECORDS SUMMARY | 2024-09-12 14:04 | XMS_ITS | Clinical Summary ---
Author Organization [facility] Address [address] [place] [address] Care Team Providers Care Executive Director Of Nursing Name Role Phone Ibrahima Martin MD Primary Care Provider + [phone] Allergies No known active allergies Medications Medication [...] age to complete this topic Care Teams Executive Director Of Nursing Relationship Specialty Start Date End Date Ibrahima Martin MD [address] [place] [address] [address] [place] [address] PCP - General Geriatric Medicine 01/02/21
== END 2024-09-12 12:33 | disposition home or self-care (01) ==
LOC: HO.BBR 12:32
PROVIDERS: Visit Provider Internal Medicine Hematology & Oncology
DX: D45 Polycythemia vera (principal)
CPT/HCPCS: 85018; 99195

== ENCOUNTER 2024-11-07 12:56 | Outpatient (REF) | payer OTHER, SELFPAY ==
--- OUTSIDE RECORDS SUMMARY | 2024-11-07 13:19 | XMS_ITS | Clinical Summary ---
Author Organization [facility] [facility] Address [address] [facility] [address] [place] [address] Care Team Providers Care Assisted Living Executive Director Name Role Phone PcpMumtaz Unassigned Primary Care [...] by mouth in the morning. Active Immunizations Immunization Administration Dates Next Due Tdap 02/23/2021 Social [...] Panel 1960 SDOH Screening 1960 Sigmoidoscopy 1960 Disability Screening 1960 Alcohol/Substance Use Screening 1972 Hepatitis C [...] history exists Influenza Vaccine (Season Ended) 2025 DTaP/Tdap/Td Vaccines (2 - Td or Tdap) [...] DENTAL - HSN FULL (MEDICAID) Care Teams Assisted Living Executive Director Relationship Specialty Start Date End Date Mumtaz Charles Unassigned PCP - General Family Medicine 09/08/22
--- OUTSIDE RECORDS SUMMARY | 2024-11-07 13:19 | XMS_ITS | Clinical Summary ---
Author Organization [facility] Address [address] [place] [address] Care Team Providers Care Drop Wire Stringer Name Role Phone Ibrahima Martin MD Primary Care Provider + [phone] Allergies No known active allergies Medications Medication [...] 77 12/11/2023 2:32 PM EDT Temperature 36.4 C (97.6 F) 12/11/2023 2:32 PM EDT Respiratory Rate - - Oxygen Saturation 99% [...] (1 o f 2) 2010 COVID-19 Vaccine (4 - 2023-2 5 season) 2024 02/11/2021, 08/13/2020, 07/23/2020 Influenza Vaccine (Season Ended) 2025 Pneumococcal Vaccine (1 of 1 - PCV) 2025 DTap / Tdap / Td (2 - [...] age to complete this topic Care Teams Drop Wire Stringer Relationship Specialty Start Date End Date Ibrahima Martin MD [address] [place] [address] [address] [place] [address] PCP - General Geriatric Medicine 01/02/21
--- OUTSIDE RECORDS SUMMARY | 2024-11-07 13:19 | XMS_ITS | Clinical Summary ---
Author Organization [facility] Address [address] [place] [address] Phone Care Team Providers Care Gang Worker Name Role Phone Ibrahima Martin MD Primary Care Provider [phone] Allergies No known active allergies Medications apixaban [...] Encounters Date Type Department Care Team Description 10/21/[address] [facility] Hematology Oncology [address] [place] [phone] Montse Gusman [place] Dermatology referral 10/18/2024 1:30 PM EDT Office Visit [facility] Hematology Oncology [address] [place] [phone] Rich Caldwell MD Hereditary hemochromatosis (CMS/HCC V24) (Primary Dx); Homozygous Factor V Leiden mutation (CMS/HCC V24); Skin lesions 09/05/[address] [facility] Hematology Oncology [address] [place] [phone] Rich Caldwell MD from Last 3 Months Surgical History Surgery [...] Sign Reading Time Taken Comments Blood Pressure 131/69 10/18/2024 1:34 PM EDT Pulse 82 10/18/2024 1:34 PM EDT Temperature 36.2 C (97.1 F) 10/18/2024 1:34 PM EDT Respiratory Rate - - Oxygen Saturation 98% 10/18/2024 1:34 PM EDT Inhaled Oxygen Concentration - - Weight 108 kg (237 lb) 10/18/2024 1:34 PM EDT Height 188 cm (6' 2 ) 03/18/2024 2:30 PM EST Body Mass Index 30.43 03/18/2024 2:30 PM EST Plan of Treatment Upcoming Encounters Date Type Department Care Team (Late st Contact Info) Description 01/17/2025 1:30 PM EDT Office Visit [facility] Hematology Oncology [address] [place] [address] Rich Caldwell MD [address] [place] [phone] Health Maintenance Due Date Last Done Comments [...] CBC auto differential (08/16/2024 12:16 PM EDT) [facility] Signature WBC 7.6 4.8 - 10.8 K/mcL LAB [facility]EM[facility]24 [facility] RBC 5.30 4.50 - 5.50 M/mcL LAB [facility]EMETOLOGY METHOD 08/16/2024 1:[facility] Hemoglobin 13.2(L) 13.5 - 17.5 g/dL LAB HEMETOLOGY METHOD 08/16/2024 1:[facility] Hematocrit 44.3 42.0 - 54.0 % LAB HEMETOLOGY METHOD 08/16/2024 1:[facility] MCV 83.0 79.0 - 98.0 FL LAB [facility]EMETOLOGY METHOD 08/16/2024 1:[facility] PM [facility] MCH 24.7(L) 27.0 - 32.0 pcg LAB HEMETOLOGY METHOD 08/16/2024 1:53 PM [facility] MCHC 29.8(L) 32.0 - 37.0 g/dL LAB HEMETOLOGY METHOD 08/16/2024 1:53 PM [facility] RDW 17.0(H) 11.0 - 15.0 % LAB HEMETOLOGY METHOD 08/16/2024 1:53 PM [facility] Platelets 292 130 - 400 K/mcL LAB HEMETOLOGY METHOD 08/16/2024 1:[facility] MPV 9.2 7.0 - 11.0 FL LAB HEMETOLOGY METHOD 08/16/2024 1:53 PM [facility] NRBC 0.0 <1.0 % LAB [facility]EMETOLOGY METHOD 08/16/2024 1:[facility] NRBC Absolute 0.00 <0.10 K/mcL LAB HEMETOLOGY METHOD 08/16/2024 1:53 PM [facility] Neutrophils Relative 65.6 % LAB HEMETOLOGY METHOD 08/16/2024 1:53 PM [facility] Lymphocytes Relative 18.0 % LAB HEMETOLOGY METHOD 08/16/2024 1:53 PM [facility] Monocytes Relative 11.0 % LAB HEMETOLOGY METHOD 08/16/2024 1:53 PM [facility] Eosinophils Relative 3.6 % LAB HEMETOLOGY METHOD 08/16/2024 1:53 PM [facility] Basophils Relative 1.5 % LAB HEMETOLOGY METHOD 08/16/2024 1:53 PM [facility] Immature Granulocytes Relative 0.3 % LAB HEMETOLOGY METHOD 08/16/2024 1:53 PM [facility] Neutrophils Absolute 4.98 1.50 - 7.00 K/mcL LAB HEMETOLOGY METHOD 08/16/2024 1:53 PM [facility] Lymphocytes Absolute 1.36 1.00 - 5.00 K/mcL LAB HEMETOLOGY METHOD 08/16/2024 1:53 PM [facility] Monocytes Absolute 0.83 0.20 - 1.00 K/mcL LAB HEMETOLOGY METHOD 08/16/2024 1:53 PM [facility] Eosinophils Absolute 0.27 0.00 - 0.50 K/mcL LAB HEMETOLOGY METHOD 08/16/2024 1:53 PM [facility] Basophils Absolute 0.11 0.00 - 0.20 K/mcL LAB HEMETOLOGY METHOD 08/16/2024 1:53 PM [facility] Immature Granulocytes Absolute 0.02 0.00 - 0.03 K/mcL LAB HEMETOLOGY METHOD 08/16/2024 1:53 PM EDT [facility] Blood Venous blood specimen / Unknown Venipuncture / Unknown 08/16/2024 12:16 PM EDT 08/16/2024 1:34 PM EDT Rich Caldwell MD LAB BLOOD ORDERABLES Final Result Performing Organization Address [facility] Co de Phone Number [facility] [address] [place] [address], [place] [phone] * (ABNORMAL) Iron and TIBC (08/16/2024 12:16 PM EDT) Iron 22(L) 50 - 160 mcg/dL LAB CHEMISTRY METHOD 08/16/2024 3:23 PM EDT [facility] TIBC 284 250 - 450 mcg/dL LAB CHEMISTRY METHOD 08/16/2024 3:23 PM EDT [facility] Iron Saturation 8(L) 20 - 50 % LAB CHEMISTRY METHOD 08/16/2024 3:23 PM EDT [facility] Blood Venous blood specimen / Unknown Venipuncture / Unknown 08/16/2024 12:16 PM EDT 08/16/2024 1:33 PM EDT Rich Caldwell MD LAB BLOOD ORDERABLES Final Result Performing Organization Address [facility] Co de Phone Number [facility] [address] [place] [address], [place] [phone] * (ABNORMAL) Ferritin (08/16/2024 12:16 PM EDT) Ferritin 7(L) 26 - 388 ng/mL LAB CHEMISTRY METHOD 08/16/2024 3:25 PM EDT [facility] Blood Venous blood specimen / Unknown Venipuncture / Unknown 08/16/2024 12:16 PM EDT 08/16/2024 1:33 PM EDT us Rich Caldwell MD LAB BLOOD ORDERABLES Final Result [facility] [address] [place] [address], * Comprehensive metabolic panel (08/16/2024 12:16 PM EDT) Sodium 139 133 - 145 mmol/L LAB CHEMISTRY METHOD 08/16/2024 3:23 PM T [facility] Potassium 4.4 3.5 - 5.5 mmol/L LAB CHEMISTRY METHOD 08/16/2024 3:23 PM [facility] Chloride 106 96 - 110 mmol/L LAB CHEMISTRY METHOD 08/16/2024 3:23 PM [facility] CO2 27 21 - 32 mmol/L LAB CHEMISTRY METHOD 08/16/2024 3:23 PM [facility] Anion Gap 6 3 - 11 LAB CHEMISTRY METHOD 08/16/2024 3:23 PM [facility] Glucose 90 70 - 100 mg/dL LAB CHEMISTRY METHOD 08/16/2024 3:23 PM [facility] BUN 15 5 - 25 mg/dL LAB CHEMISTRY METHOD 08/16/2024 3:23 PM [facility] Creatinine 0.89 0.70 - 1.30 mg/dL LAB CHEMISTRY METHOD 08/16/2024 3:23 PM [facility] eGFR 96 >=60 mL/min/1. 73m2 LAB CHEMISTRY METHOD 08/16/2024 3:23 PM [facility] Comment:Calculation based on the Chronic Kidney Disease Epidemiology Collaboration (CKD-EPI) equation refit without adjustment for race. BUN/Creatinine Ratio 16.9 LAB CHEMISTRY METHOD 08/16/2024 3:23 PM [facility] Calcium 9.6 8.5 - 10.5 mg/dL LAB CHEMISTRY METHOD 08/16/2024 3:23 PM EDT [facility] AST (SGOT) 19 10 - 42 unit/L LAB CHEMISTRY METHOD 08/16/2024 3:23 PM EDT [facility] ALT (SGPT) 32 10 - 60 unit/L LAB CHEMISTRY METHOD 08/16/2024 3:23 PM EDT [facility] Alkaline Phosphatase 77 42 - 121 unit/L LAB CHEMISTRY METHOD 08/16/2024 3:23 PM EDT [facility] Total Protein 7.2 6.0 - 8.0 g/dL LAB CHEMISTRY METHOD 08/16/2024 3:23 PM EDT [facility] Albumin 3.9 3.2 - 5.0 g/dL LAB CHEMISTRY METHOD 08/16/2024 3:23 PM T [facility] Total Bilirubin 0.7 0.0 - 1.4 mg/dL LAB CHEMISTRY METHOD 08/16/2024 3:23 PM EDT [facility] Blood Venous blood specimen / Unknown Venipuncture / Unknown 08/16/2024 12:16 PM EDT 08/16/2024 1:33 PM EDT us Rich Caldwell MD LAB BLOOD ORDERABLES Final Result [facility] [address] [place] [address], from Last 3 Months Insurance [facility] [employer] Care Teams Gang Worker Relationship Specialty Start Date End Date Ibrahima Martin MD [address] [facility] [address] [place], [place] PCP - General Geriatric Medicine 01/02/21
== END 2024-11-07 12:57 | disposition home or self-care (01) ==
LOC: HO.BBR 12:56
PROVIDERS: Visit Provider Internal Medicine Hematology & Oncology
DX: D45 Polycythemia vera (principal)
CPT/HCPCS: 85018

== ENCOUNTER 2025-01-02 13:48 | Outpatient (REF) | payer OTHER, SELFPAY ==
--- OUTSIDE RECORDS SUMMARY | 2025-01-02 15:07 | XMS_ITS | Clinical Summary ---
Author Organization [facility] Address [address] [place] [address] Phone Care Team Providers Care Cooler Conveyor Loader Name Role Phone Ibrahima Martin MD Primary Care Provider [phone] Allergies No known active allergies Medications apixaban [...] Type Department Care Team Description 10/21/2024 Telephone [facility] Hematology Oncology [address] [place] [phone] Montse Gusman [place] 10/18/2024 1:30 PM EDT Office Visit [facility] Hematology Oncology [address] [place] [phone] Rich Caldwell MD Hereditary hemochromatosis (CMS/HCC V24) (Primary Dx); Homozygous Factor V Leiden mutation (CMS/HCC V24); Skin lesions from Last 3 Months Surgical History Surgery [...] Description 01/17/2025 1:30 PM EDT Office Visit [facility] Hematology Oncology [address] [place] [address] Rich Caldwell MD [address] [place] [address] Health Maintenance Due Date Last Done Comments Pneumococcal Vaccine: 50+ Years (1 of 1 - PCV) 2010 Zoster Vaccines (1 of 2) 2010 Cholesterol Screening (Lipid Panel) 04/18/2022 Colorectal Cancer Screening: Colonoscopy 04/18/2022 HIV Screening 04/18/2022 Hepatitis C Screening 04/18/2022 Social Influencers of Health Screening 04/18/2022 COVID-19 Vaccine ( season) 2024 03/05/2022, 09/01/2021, 02/11/2021, Additional history exists Depression Screening 05/11/2024 Influenza Vaccine (#1) 2025 DTaP,Tdap,and Td Vaccines (2 - Td [...] Diagnosis Comments CBC WITH AUTO DIFFERENTIAL Routine 11/16/2024 8:55 AM EDT Hereditary hemochromatosis (CMS/HCC V24) Homozygous Factor V Leiden mutation (CMS/HCC V24) IRON AND TIBC Routine 11/16/2024 8:55 AM EDT Hereditary hemochromatosis (CMS/HCC V24) Homozygous Factor V Leiden mutation (CMS/HCC V24) FERRITIN Routine 11/16/2024 8:55 AM EDT Hereditary hemochromatosis (CMS/HCC V24) Homozygous Factor V Leiden mutation (CMS/HCC V24) COMPREHENSIVE METABOLIC PANEL Routine 11/16/2024 8:55 AM EDT Hereditary hemochromatosis (CMS/HCC V24) Homozygous Factor V Leiden mutation (CMS/HCC V24) CBC AND DIFFERENTIAL Routine 11/16/2024 8:55 AM EDT Hereditary hemochromatosis (CMS/HCC V24) Homozygous Factor V Leiden mutation ([facility]/HCC V24) from Last 3 Months Results * (ABNORMAL) CBC auto differential (11/16/2024 8:55 AM EDT) WBC 7.6 4.8 - 10.8 K/mcL LAB HEMETOLOGY METHOD 11/16/2024 11:19 AM [facility] RBC 5.40 4.50 - 5.50 M/mcL LAB HEMETOLOGY METHOD 11/16/2024 11:19 AM [facility] Hemoglobin 13.9 13.5 - 17.5 g/dL LAB HEMETOLOGY METHOD 11/16/2024 11:19 AM [facility] Hematocrit 46.2 42.0 - 54.0 % LAB HEMETOLOGY METHOD 11/16/2024 11:19 AM [facility] MCV 85.2 79.0 - 98.0 FL LAB HEMETOLOGY METHOD 11/16/2024 11:19 AM [facility] MCH 25.6(L) 27.0 - 32.0 pcg LAB HEMETOLOGY METHOD 11/16/2024 11:19 AM [facility] MCHC 30.1(L) 32.0 - 37.0 g/dL LAB HEMETOLOGY METHOD 11/16/2024 11:19 AM [facility] RDW 18.7(H) 11.0 - 15.0 % LAB HEMETOLOGY METHOD 11/16/2024 11:19 AM [facility] Platelets 318 130 - 400 K/mcL LAB HEMETOLOGY METHOD 11/16/2024 11:19 AM [facility] MPV 9.6 7.0 - 11.0 FL LAB HEMETOLOGY METHOD 11/16/2024 11:19 AM [facility] NRBC 0.0 <1.0 % LAB HEMETOLOGY METHOD 11/16/2024 11:19 AM [facility] NRBC Absolute 0.00 <0.10 K/mcL LAB HEMETOLOGY METHOD 11/16/2024 11:19 AM [facility] Neutrophils Relative 65.1 % LAB HEMETOLOGY METHOD 11/16/2024 11:19 AM [facility] Lymphocytes Relative 19.0 % LAB HEMETOLOGY METHOD 11/16/2024 11:19 AM [facility] Monocytes Relative 10.4 % LAB HEMETOLOGY METHOD 11/16/2024 11:19 AM [facility] Eosinophils Relative 3.4 % LAB HEMETOLOGY METHOD 11/16/2024 11:19 AM [facility] Basophils Relative 1.6 % LAB HEMETOLOGY METHOD 11/16/2024 11:19 AM [facility] Immature Granulocytes Relative 0.5 % LAB HEMETOLOGY METHOD 11/16/2024 11:19 AM [facility] Neutrophils Absolute 4.91 1.50 - 7.00 K/mcL LAB HEMETOLOGY METHOD 11/16/2024 11:19 AM [facility] Lymphocytes Absolute 1.44 1.00 - 5.00 K/mcL LAB HEMETOLOGY METHOD 11/16/2024 11:19 AM [facility] Monocytes Absolute 0.79 0.20 - 1.00 K/mcL LAB HEMETOLOGY METHOD 11/16/2024 11:19 AM [facility] Eosinophils Absolute 0.26 0.00 - 0.50 K/mcL LAB HEMETOLOGY METHOD 11/16/2024 11:19 AM [facility] Basophils Absolute 0.12 0.00 - 0.20 K/mcL LAB HEMETOLOGY METHOD 11/16/2024 11:19 AM [facility] Immature Granulocytes Absolute 0.04(H) 0.00 - 0.03 K/mcL LAB HEMETOLOGY METHOD 11/16/2024 11:19 AM EDT [facility] Blood Venous blood specimen / Unknown Venipuncture / Unknown 11/16/2024 8:55 AM EDT 11/16/2024 11:06 AM EDT Rich Caldwell MD LAB BLOOD ORDERABLES Final Result Performing Organization Address [facility]/ZIP Co de Phone Number [facility] [address] [place] [address], [place] [phone] * (ABNORMAL) Iron and TIBC (11/16/2024 8:55 AM EDT) Iron 34(L) 50 - 160 mcg/dL LAB CHEMISTRY METHOD 11/16/2024 11:48 AM EDT [facility] TIBC 283 250 - 450 mcg/dL LAB CHEMISTRY METHOD 11/16/2024 11:48 AM EDT [facility] Iron Saturation 12(L) 20 - 50 % LAB CHEMISTRY METHOD 11/16/2024 11:48 AM EDT [facility] Blood Venous blood specimen / Unknown Venipuncture / Unknown 11/16/2024 8:55 AM EDT 11/16/2024 11:07 AM EDT Rich Caldwell MD LAB BLOOD ORDERABLES Final Result Performing Organization Address [facility]/ZIP Co de Phone Number [facility] [address] [place] [address], [place] [phone] * (ABNORMAL) Ferritin (11/16/2024 8:55 AM EDT) Ferritin 7(L) 26 - 388 ng/mL LAB CHEMISTRY METHOD 11/16/2024 11:48 AM EDT [facility] Blood Venous blood specimen / Unknown Venipuncture / Unknown 11/16/2024 8:55 AM EDT 11/16/2024 11:07 AM EDT us Rich Caldwell MD LAB BLOOD ORDERABLES Final Result [facility] [address] [place] [address], * Comprehensive metabolic panel (11/16/2024 8:55 AM EDT) Sodium 140 133 - 145 mmol/L LAB CHEMISTRY METHOD 11/16/2024 11:48 AM [facility] Potassium 4.3 3.5 - 5.5 mmol/L LAB CHEMISTRY METHOD 11/16/2024 11:48 AM [facility] Chloride 105 96 - 110 mmol/L LAB CHEMISTRY METHOD 11/16/2024 11:48 AM [facility] CO2 27 21 - 32 mmol/L LAB CHEMISTRY METHOD 11/16/2024 11:48 AM [facility] Anion Gap 8 3 - 11 LAB CHEMISTRY METHOD 11/16/2024 11:48 AM [facility] Glucose 98 70 - 100 mg/dL LAB CHEMISTRY METHOD 11/16/2024 11:48 AM [facility] BUN 16 5 - 25 mg/dL LAB CHEMISTRY METHOD 11/16/2024 11:48 AM [facility] Creatinine 0.90 0.70 - 1.30 mg/dL LAB CHEMISTRY METHOD 11/16/2024 11:48 AM [facility] eGFR 95 >=60 mL/min/1. 73m2 LAB CHEMISTRY METHOD 11/16/2024 11:48 AM [facility] Comment:Calculation based on the Chronic Kidney Disease Epidemiology Collaboration (CKD-EPI) equation refit without adjustment for race. BUN/Creatinine Ratio 17.8 LAB CHEMISTRY METHOD 11/16/2024 11:48 AM EDT [facility] Calcium 9.3 8.5 - 10.5 mg/dL LAB CHEMISTRY METHOD 11/16/2024 11:48 AM [facility] AST (SGOT) 16 10 - 42 unit/L LAB CHEMISTRY METHOD 11/16/2024 11:48 AM [facility] ALT (SGPT) 36 10 - 60 unit/L LAB CHEMISTRY METHOD 11/16/2024 11:48 AM [facility] Alkaline Phosphatase 77 42 - 121 unit/L LAB CHEMISTRY METHOD 11/16/2024 11:48 AM [facility] Total Protein 7.1 6.0 - 8.0 g/dL LAB CHEMISTRY METHOD 11/16/2024 11:48 AM [facility] Albumin 4.0 3.2 - 5.0 g/dL LAB CHEMISTRY METHOD 11/16/2024 11:48 AM [facility] Total Bilirubin 0.7 0.0 - 1.4 mg/dL LAB CHEMISTRY METHOD 11/16/2024 11:48 AM [facility] Blood Venous blood specimen / Unknown Venipuncture / Unknown 11/16/2024 8:55 AM EDT 11/16/2024 11:07 AM EDT Rich Caldwell MD LAB BLOOD ORDERABLES Final Result [facility] [address] [place] [address], from Last 3 Months Insurance [facility] [employer] Care Teams Cooler Conveyor Loader Relationship Specialty Start Date End Date Ibrahima Martin MD [address] [facility] [address] [place], [place] PCP - General Geriatric Medicine 01/02/21
--- OUTSIDE RECORDS SUMMARY | 2025-01-02 15:07 | XMS_ITS | Encounter Summary ---
Author Organization [employer] Address [address] [facility] 7t [place] [address] Care Team Providers Care Sewer Line Photo Inspector Name Role Phone Mumtaz Charles Unassigned Primary [...] on filedocumented in this encounter Care Teams Sewer Line Photo Inspector Relationship Specialty Start Date End Date Mumtaz Charles Unassigned PCP - General Family Medicine 09/08/22 documented as of this encounter
--- OUTSIDE RECORDS SUMMARY | 2025-01-02 15:07 | XMS_ITS | Clinical Summary ---
Author Organization [facility] Address [address] [place] [address] Care Team Providers Care Media Liaison Officer Name Role Phone Ibrahima Martin MD Primary Care Provider + [phone] Allergies No known active allergies Medications Medication [...] 2024 02/11/2021, 08/13/2020, 07/23/2020 Influenza Vaccine (#1) 2025 Pneumococcal Vaccine (1 of 1 - [...] age to complete this topic Care Teams Media Liaison Officer Relationship Specialty Start Date End Date Ibrahima Martin MD [address] [place] [address] [address] [place] [address] PCP - General Geriatric Medicine 01/02/21
--- OUTSIDE RECORDS SUMMARY | 2025-01-02 15:07 | XMS_ITS | Clinical Summary ---
Author Organization [employer] Address [address] [facility] 7t [place] [address] Care Team Providers Care Deep Fat Cook Fry Name Role Phone PcpMumtaz Unassigned Primary Care [...] 02/11/2021, Additional history exists Influenza Vaccine (#1) 2025 DTaP/Tdap/Td Vaccines (2 - Td or [...] DENTAL - HSN FULL (MEDICAID) Care Teams Deep Fat Cook Fry Relationship Specialty Start Date End Date Mumtaz Charles Unassigned PCP - General Family Medicine 09/08/22
== END 2025-01-02 13:49 | disposition home or self-care (01) ==
LOC: HO.BBR 13:48
PROVIDERS: Visit Provider Internal Medicine Hematology & Oncology
DX: D45 Polycythemia vera (principal)
CPT/HCPCS: 85018; 99195

== ENCOUNTER 2025-02-27 13:45 | Outpatient (REF) | payer OTHER, SELFPAY ==
--- OUTSIDE RECORDS SUMMARY | 2025-02-27 17:05 | XMS_ITS | Clinical Summary ---
Author Organization [facility] Address [address] [place] [address] Care Team Providers Care Malware Analyst Name Role Phone Ibrahima Martin MD Primary Care Provider + [phone] Allergies No known active allergies Medications Medication [...] f 2) 2010 COVID-19 Vaccine (4 - 2024-2 6 season) 2025 02/11/2021, 08/13/2020, 07/23/2020 Influenza Vaccine (#1) 2025 [...] age to complete this topic Care Teams Malware Analyst Relationship Specialty Start Date End Date Ibrahima Martin MD [address] [place] [address] 1 [place] [address] PCP - General Geriatric Medicine 01/02/21
--- OUTSIDE RECORDS SUMMARY | 2025-02-27 17:05 | XMS_ITS | Encounter Summary ---
Author Organization [employer] Address [address] [facility] 7t [place] [address] Care Team Providers Care B2B Sales Representative Name Role Phone Mumtaz Charles Unassigned Primary [...] on filedocumented in this encounter Care Teams B2B Sales Representative Relationship Specialty Start Date End Date Mumtaz Charles Unassigned PCP - General Family Medicine 09/08/22 documented as of this encounter
--- OUTSIDE RECORDS SUMMARY | 2025-02-27 17:05 | XMS_ITS | Clinical Summary ---
Author Organization [employer] Address [address] [facility] [address] [place] [address] Care Team Providers Care Plastic Boat Buffer Name Role Phone PcpMumtaz Unassigned Primary Care [...] 08/10/2015, 05/23/2010, Additional history exists COVID-19 Vaccine (2024- season) 2025 03/05/2022, 09/01/2021, 02/11/2021, Additional history exists Influenza [...] DENTAL - HSN FULL (MEDICAID) Care Teams Plastic Boat Buffer Relationship Specialty Start Date End Date Mumtaz Charles Unassigned PCP - General Family Medicine 09/08/22
== END 2025-02-27 13:46 | disposition home or self-care (01) ==
LOC: HO.BBR 13:45
PROVIDERS: Visit Provider Internal Medicine Hematology & Oncology
DX: D45 Polycythemia vera (principal)
CPT/HCPCS: 85014; 85018; 99195

== ENCOUNTER 2025-04-25 14:04 | Outpatient (REF) | payer OTHER, SELFPAY ==
--- OUTSIDE RECORDS SUMMARY | 2025-04-25 18:20 | XMS_ITS | Clinical Summary ---
Author Organization [facility] Address [address] [place] [address] Phone Care Team Providers Care Hospital Cleaning Specialist Name Role Phone Ibrahima Martin MD Primary Care Provider [phone] Allergies No known active allergies Medications atorvastatin (LIPITOR) 20 mg tablet Take 1 tablet (20 mg total) by mouth every other day. Active metoprolol succinate (TOPROL-XL) 25 mg 24 hr tablet Take 1 tablet (25 mg total) by mouth 1 (one) time each day. Active Eliquis 5 mg tablet TAKE 1 TABLET BY MOUTH EVERY 12 HOURS 60 tablet 11 02/14/2025 Active hydroxyurea (HYDREA) 500 mg capsule TAKE 1 CAPSULE (500 MG TOTAL) BY MOUTH DAILY 30 capsule 11 03/14/2025 Active Active Problems Problem Noted Date Diagnosed Date Hereditary hemochromatosis 11/29/2019 Homozygous Factor V Leiden mutation 11/29/2019 Encounters Date Type Department Care Team Description 04/18/2025 1:45 PM EST Office Visit [facility] Hematology Oncology [address] [place] [address] Rich Caldwell MD Hereditary hemochromatosis (CMS/HCC V24) (Primary Dx); Homozygous Factor V Leiden mutation (CMS/HCC V24) from Last 3 Months Surgical History Surgery Date Site/Laterality Comments APPENDECTOMY PROCEDURE:APPENDECTOMY OTHER SURGICAL HISTORY PROCEDURE:Heart Stent placed 02/25/2006 Medical History Medical History Date Comments Hemochromatosis DX:Hemochromatos is Gout DX:Gout Social History Tobacco Use Types Packs/Day Years Used Date Smoking Tobacco: Former Cigarettes 0 Q uit: 10/09/2017 Tobacco Cessation:Counseling Given: Not Answered Alcohol Use Standard Drinks/Week Comments Yes 2 (1 standard drink = 0.6 oz pur e alcohol) Sex and Gender Information Value Date Recorded Sex Assigned at Not on file Legal Sex Male 7:36 PM EST Gender Identity Not on file Sexual Orientation Not on file Last Filed Vital Signs Vital Sign Reading Time Taken Comments Blood Pressure 129/76 04/18/2025 2:00 PM EST Pulse 68 04/18/2025 2:00 PM EST Temperature 36.2 C (97.1 F) 04/18/2025 2:00 PM EST Respiratory Rate - - Oxygen Saturation 100% 04/18/2025 2:00 PM EST Inhaled Oxygen Concentration - - Weight 106 kg (233 lb) 04/18/2025 2:00 PM EST Height 188 cm (6' 2 ) 03/18/2024 2:30 PM EST Body Mass Index 29.92 03/18/2024 2:30 PM EST Plan of Treatment Upcoming Encounters Date Type Department Care Team (Late st Contact Info) Description 07/18/2025 2:00 PM EDT Office Visit [facility] Hematology Oncology [address] [place] [address] Rich Caldwell MD [address] [place] [address] Health Maintenance Due Date Last Done Comments Colorectal Cancer Screening: Colonoscopy 1960 Pneumococcal Vaccine: 50+ Years (1 of 1 - PCV) 2010 RSV Immunization Adult Patients (1 - Risk 50-74 years 1-dose series) 2010 Zoster Vaccines (1 of 2) 2010 Cholesterol Screening (Lipid Panel) 04/18/2022 HIV Screening 04/18/2022 Hepatitis C Screening 04/18/2022 Social Influencers of Health Screening 04/18/2022 Depression Screening 05/11/2024 COVID-19 Vaccine ( season) 2025 03/05/2022, 09/01/2021, 02/11/2021, Additional history exists Influenza Vaccine (#1) 2025 DTaP,Tdap,and Td Vaccines (2 - Td or Tdap) 02/23/2031 02/23/2021 HIB Vaccines Aged Out No longer eligi [...] Diagnosis Comments CBC WITH AUTO DIFFERENTIAL Routine 02/16/2025 8:04 AM EDT Hereditary hemochromatosis (CMS/HCC V24) Homozygous Factor V Leiden mutation (CMS/HCC V24) CBC AND DIFFERENTIAL Routine 02/16/2025 8:04 AM EDT Hereditary hemochromatosis (CMS/HCC V24) Homozygous Factor V Leiden mutation (CMS/HCC V24) FERRITIN Routine 02/16/2025 8:04 AM EDT Hereditary hemochromatosis (CMS/HCC V24) Homozygous Factor V Leiden mutation (CMS/HCC V24) IRON AND TIBC Routine 02/16/2025 8:04 AM EDT Hereditary hemochromatosis (CMS/HCC V24) Homozygous Factor V Leiden mutation (CMS/HCC V24) COMPREHENSIVE METABOLIC PANEL Routine 02/16/2025 8:04 AM EDT Hereditary hemochromatosis (CMS/HCC V24) Homozygous Factor V Leiden mutation (CMS/HCC V24) from Last 3 Months Results * (ABNORMAL) CBC auto differential (02/16/2025 8:04 AM EDT) WBC 8.9 4.8 - 10.8 K/mcL LAB HEMETOLOGY METHOD 02/16/2025 12:25 PM [facility] RBC 5.50 4.50 - 5.50 M/mcL LAB HEMETOLOGY METHOD 02/16/2025 12:25 PM [facility] Hemoglobin 14.7 13.5 - 17.5 g/dL LAB HEMETOLOGY METHOD 02/16/2025 12:25 PM [facility] Hematocrit 47.5 42.0 - 54.0 % LAB HEMETOLOGY METHOD 02/16/2025 12:25 PM [facility] MCV 86.8 79.0 - 98.0 FL LAB HEMETOLOGY METHOD 02/16/2025 12:25 PM [facility] MCH 26.9(L) 27.0 - 32.0 pcg LAB HEMETOLOGY METHOD 02/16/2025 12:25 PM [facility] MCHC 30.9(L) 32.0 - 37.0 g/dL LAB HEMETOLOGY METHOD 02/16/2025 12:25 PM [facility] RDW 16.0(H) 11.0 - 15.0 % LAB HEMETOLOGY METHOD 02/16/2025 12:25 PM [facility] Platelets 314 130 - 400 K/mcL LAB HEMETOLOGY METHOD 02/16/2025 12:25 PM [facility] MPV 9.4 7.0 - 11.0 FL LAB HEMETOLOGY METHOD 02/16/2025 12:25 PM [facility] NRBC 0.0 <1.0 % LAB HEMETOLOGY METHOD 02/16/2025 12:25 PM [facility] NRBC Absolute 0.00 <0.10 K/mcL LAB HEMETOLOGY METHOD 02/16/2025 12:25 PM [facility] Neutrophils Relative 66.3 % LAB HEMETOLOGY METHOD 02/16/2025 12:25 PM EDT [facility] Lymphocytes Relative 18.0 % LAB HEMETOLOGY METHOD 02/16/2025 12:25 PM T [facility] Monocytes Relative 10.9 % LAB HEMETOLOGY METHOD 02/16/2025 12:25 PM EDT [facility] Eosinophils Relative 2.9 % LAB HEMETOLOGY METHOD 02/16/2025 12:25 PM EDT [facility] Basophils Relative 1.7 % LAB HEMETOLOGY METHOD 02/16/2025 12:25 PM [facility] Immature Granulocytes Relative 0.2 % LAB HEMETOLOGY METHOD 02/16/2025 12:25 PM [facility] Neutrophils Absolute 5.87 1.50 - 7.00 K/mcL LAB HEMETOLOGY METHOD 02/16/2025 12:25 PM EDT [facility] Lymphocytes Absolute 1.60 1.00 - 5.00 K/mcL LAB HEMETOLOGY METHOD 02/16/2025 12:25 PM [facility] Monocytes Absolute 0.97 0.20 - 1.00 K/mcL LAB HEMETOLOGY METHOD 02/16/2025 12:25 PM [facility] Eosinophils Absolute 0.26 0.00 - 0.50 K/mcL LAB HEMETOLOGY METHOD 02/16/2025 12:25 PM EDT [facility] Basophils Absolute 0.15 0.00 - 0.20 K/mcL LAB HEMETOLOGY METHOD 02/16/2025 12:25 PM [facility] Immature Granulocytes Absolute 0.02 0.00 - 0.03 K/mcL LAB HEMETOLOGY METHOD 02/16/2025 12:25 PM [facility] Blood Venous blood specimen / Unknown Venipuncture / Unknown 02/16/2025 8:04 AM EDT 02/16/2025 12:07 PM EDT us Rich Caldwell MD LAB BLOOD ORDERABLES Final Result Performing Organization Address [facility] Co de Phone Number [facility] [address] [place] [address], [place] [phone] * (ABNORMAL) Iron and TIBC (02/16/2025 8:04 AM EDT) Iron 34(L) 50 - 160 mcg/dL LAB CHEMISTRY METHOD 02/16/2025 12:54 PM EDT [facility] TIBC 314 250 - 450 mcg/dL LAB CHEMISTRY METHOD 02/16/2025 12:54 PM EDT [facility] Iron Saturation 11(L) 20 - 50 % LAB CHEMISTRY METHOD 02/16/2025 12:54 PM EDT [facility] Blood Venous blood specimen / Unknown Venipuncture / Unknown 02/16/2025 8:04 AM EDT 02/16/2025 12:07 PM EDT us Rich Caldwell MD LAB BLOOD ORDERABLES Final Result Performing Organization Address [facility] de Phone Number [facility] [address] [place] [address], [place] [phone] * (ABNORMAL) Ferritin (02/16/2025 8:04 AM EDT) Ferritin 8(L) 26 - 388 ng/mL LAB CHEMISTRY METHOD 02/16/2025 12:57 PM EDT [facility] Blood Venous blood specimen / Unknown Venipuncture / Unknown 02/16/2025 8:04 AM EDT 02/16/2025 12:07 PM EDT us Rich Caldwell MD LAB BLOOD ORDERABLES Final Result [facility] [address] [place] [address], * Comprehensive metabolic panel (02/16/2025 8:04 AM EDT) Sodium 139 133 - 145 mmol/L LAB CHEMISTRY METHOD 02/16/2025 12:54 PM EDT [facility] Potassium 4.4 3.5 - 5.5 mmol/L LAB CHEMISTRY METHOD 02/16/2025 12:54 PM EDT [facility] Chloride 106 96 - 110 mmol/L LAB CHEMISTRY METHOD 02/16/2025 12:54 PM [facility] CO2 25 21 - 32 mmol/L LAB CHEMISTRY METHOD 02/16/2025 12:54 PM [facility] Anion Gap 8 3 - 11 LAB CHEMISTRY METHOD 02/16/2025 12:54 PM [facility] Glucose 98 70 - 100 mg/dL LAB CHEMISTRY METHOD 02/16/2025 12:54 PM [facility] BUN 14 5 - 25 mg/dL LAB CHEMISTRY METHOD 02/16/2025 12:54 PM [facility] Creatinine 1.00 0.70 - 1.30 mg/dL LAB CHEMISTRY METHOD 02/16/2025 12:54 PM [facility] eGFR 84 >=60 mL/min/1. 73m2 LAB CHEMISTRY METHOD 02/16/2025 12:54 PM [facility] Comment:Calculation based on the Chronic Kidney Disease Epidemiology Collaboration (CKD-EPI) equation refit without adjustment for race. BUN/Creatinine Ratio 14.0 LAB CHEMISTRY METHOD 02/16/2025 12:54 PM [facility] Calcium 9.2 8.5 - 10.5 mg/dL LAB CHEMISTRY METHOD 02/16/2025 12:54 PM [facility] AST (SGOT) 24 10 - 42 unit/L LAB CHEMISTRY METHOD 02/16/2025 12:54 PM EDT [facility] ALT (SGPT) 25 10 - 60 unit/L LAB CHEMISTRY METHOD 02/16/2025 12:54 PM EDT [facility] Alkaline Phosphatase 85 42 - 121 unit/L LAB CHEMISTRY METHOD 02/16/2025 12:54 PM EDT [facility] Total Protein 7.3 6.0 - 8.0 g/dL LAB CHEMISTRY METHOD 02/16/2025 12:54 PM EDT [facility] Albumin 4.1 3.2 - 5.0 g/dL LAB CHEMISTRY METHOD 02/16/2025 12:54 PM EDT [facility] Total Bilirubin 0.7 0.0 - 1.4 mg/dL LAB CHEMISTRY METHOD 02/16/2025 12:54 PM T [facility] Blood Venous blood specimen / Unknown Venipuncture / Unknown 02/16/2025 8:04 AM EDT 02/16/2025 12:07 PM EDT Rich Caldwell MD LAB BLOOD ORDERABLES Final Result [facility] [address] [place] [address], [place] [phone] from Last 3 Months Insurance [facility] [employer] Care Teams Hospital Cleaning Specialist Relationship Specialty Start Date End Date Ibrahima Martin MD [address] [facility] [address] [place], [place] PCP - General Geriatric Medicine 01/02/21
--- OUTSIDE RECORDS SUMMARY | 2025-04-25 18:20 | XMS_ITS | Clinical Summary ---
Author Organization [employer] Address [address] [facility] 7[address] [place] [address] Care Team Providers Care Pipe Organ Builder Name Role Phone Unavailable Primary Care Provider Unavailabl e Allergies No known active allergies Medications aspirin [...] Additional history exists COVID-19 Vaccine ( season) 2025 03/05/2022, 09/01/2021, [...]
--- OUTSIDE RECORDS SUMMARY | 2025-04-25 18:20 | XMS_ITS | Encounter Summary ---
Author Organization [employer] Address [address] [facility] 7[address] [place] [address] Care Team Providers Care Language Arts Teacher Name Role Phone Mumtaz Charles Unassigned Primary [...] on filedocumented in this encounter Care Teams Language Arts Teacher Relationship Specialty Start Date End Date Mumtaz Charles Unassigned PCP - General Family Medicine 09/08/22 04/13/25 documented as of this encounter
--- OUTSIDE RECORDS SUMMARY | 2025-04-25 18:20 | XMS_ITS | Clinical Summary ---
Author Organization [facility] Prior to 10/08/[address] [place] [address] Care Team Providers Care Crematorium Operator Name Role Phone Ibrahima Martin MD Primary Care Provider + [phone] Allergies No known active allergies Medications Medication [...] age to complete this topic Care Teams Crematorium Operator Relationship Specialty Start Date End Date Ibrahima Martin MD [address] [facility] [address] [place] [id number] PCP - General Geriatric Medicine 01/02/21
== END 2025-04-25 14:05 | disposition home or self-care (01) ==
LOC: HO.BBR 14:04
PROVIDERS: Visit Provider Internal Medicine Hematology & Oncology
DX: E83.110 Hereditary hemochromatosis (principal); D45 Polycythemia vera
CPT/HCPCS: 85018; 99195